=== PATIENT | male | born 2005 | race African-American/Black ===

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

== ENCOUNTER 2023-05-03 19:55 | Emergency (ER) | payer OTHER ==
[~2023-05-03] VITALS: Ht 160 cm; Wt 74.4 kg
[2023-05-03] MEDS: ALBUTEROL SULF 2.5 MG/0.5ML(0.5%) NEB SOLN NEB ONE ×2 (20:20→21:54)
[2023-05-03] MEDS: IPRATROPIUM BROM 0.5 MG/2.5ML INH SOL NEB ONE (20:20)
[2023-05-03] MEDS ORDERED: BENZ200C64 PO (21:53)
[2023-05-03] MEDS ORDERED: ALBU108A5 IN (21:53)
[2023-05-03] MEDS ORDERED: PRED20TA2 PO (21:53)
[2023-05-03] MEDS ORDERED: AZITTAB PO (21:53)
[2023-05-03] MEDS ORDERED: ALBU1.258 IN (21:53)
[2023-05-03 23:11] VITALS: BP 115/67; PULSE 86; RESP 18; O2SAT 97
[2023-05-03] MEDS: methylPREDNISolone SOD SUCC 125 MG/2 ML VL IM ONE (23:13)
== END 2023-05-03 21:46 | disposition home or self-care (01) ==
LOC: EDBD 19:55 → ER 19:55
DX: J45.909 Unspecified asthma, uncomplicated (principal)
CPT/HCPCS: 93005; 94640; 96372; 99284; J2930; J7644